=== PATIENT | male | born 1995 | race Caucasian/White ===

== ENCOUNTER 2017-05-06 15:32 | Emergency (ER) | payer BC ==
[~2017-05-06] VITALS: Ht 180.3 cm; Wt 72.7 kg
[~2017-05-06 15:32] MED LIST: DICLEGIS PO; NO HOME MEDICATIONS; TYLENOL #3 301 UDTAB PO
[2017-05-06 15:34] VITALS: TEMP 98.1
[2017-05-06 16:09] LABS: BASO % 0.3 % (0.0-2.0); EOS # 0.2 (0.0-0.7); EOS % 3.7 % (0-4.0); GRAN # 3.5 (1.4-6.5); GRAN % 61.3 % (42.2-75.2); HEMATOCRIT 43.6 % (42.0-52.0); HEMOGLOBIN 15.3 g/dl (13.5-18.0); LYMPH # 1.5 (1.2-3.4); LYMPH % 25.4 % (20.0-51.0); MEAN CELL VOLUME 89 fl (80.0-100.0); MEAN CORPUSCULAR HEMOGLOBIN 31 pg (27.0-31.0); MEAN CORPUSCULAR HGB CONC 35 g/dl (33.0-37.0); MEAN PLATELET VOLUME 9.7 fl (7.4-10.4); MONO # 0.5 (0.1-0.6); MONO % 9.1 % (1.7-9.3); PLATELET COUNT 177 K/mm3 (130-400); RED BLOOD COUNT 4.91 M/mm3 (4.20-5.60); REDCELL DISTRIBUTION WIDTH-CV 11.4 % (11.5-14.5)
[2017-05-06 16:18] LABS: ALBUMIN 5.2 gm/dL (3.5-5.0); BILIRUBIN,TOTAL 0.8 mg/dL (0.0-1.0); C-REACTIVE PROTEIN 0.6 mg/dL (0.0-0.9); CALCIUM 9.8 mg/dL (8.4-10.2); CREATININE, serum 0.88 mg/dL (0.66-1.25); POTASSIUM 3.7 mmol/L (3.4-5.0); TOTAL PROTEIN 8.3 gm/dL (6.4-8.2)
[2017-05-06 17:44] VITALS: BP 122/75
[2017-05-06] MEDS ORDERED: NORCO 325 MG-51 TAB PO (18:06)
[2017-05-06 18:11] VITALS: PULSE 50
[2017-05-06] MEDS ORDERED: ANTIVERT 25MG25 MG PO (18:18)
== END 2017-05-06 18:21 | disposition home or self-care (01) ==
LOC: COL.ER 15:32
PROVIDERS: Emergency Medicine
DX: S06.5X0A Traumatic subdural hemorrhage without loss of consciousness, initial encounter (principal); X58.XXXA Exposure to other specified factors, initial encounter
CPT/HCPCS: J2060; J2405; J7030

== ENCOUNTER → 2017-06-15 | Outpatient (CLI) | payer BC ==
[~2017-06-15] MED LIST changes: +ANTIVERT 25MG25 MG PO; +NORCO 325 MG-51 TAB PO
== END ==
LOC: COL.RAD 13:55
DX: S06.320A Contusion and laceration of left cerebrum without loss of consciousness, initial encounter (principal); W19.XXXA Unspecified fall, initial encounter

== ENCOUNTER 2019-01-30 00:17 | Emergency (ER) | payer BC ==
[~2019-01-30] VITALS: Ht 177.8 cm; Wt 77.3 kg
[2019-01-30 00:25] VITALS: BP 134/85; PULSE 67; TEMP 97.6
== END 2019-01-30 01:29 | disposition home or self-care (01) ==
LOC: COL.ER 00:17
DX: S46.912A Strain of unspecified muscle, fascia and tendon at shoulder and upper arm level, left arm, initial encounter (principal); W19.XXXA Unspecified fall, initial encounter; Y92.320 Baseball field as the place of occurrence of the external cause; Y93.64 Activity, baseball
CPT/HCPCS: J1885

== ENCOUNTER → 2020-02-14 | Outpatient (CLI) | payer BC | LOC: ZCOL.LAB 01:02 | DX: U07.1 COVID-19 (principal) ==